=== PATIENT | male | born 1985 | race Caucasian/White ===

== ENCOUNTER 2020-06-08 11:15 | Outpatient (RCR) | payer BC | END 2020-06-08 12:00 | disposition still patient (30) | LOC: PT 11:15 | DX: S16.1XXD Strain of muscle, fascia and tendon at neck level, subsequent encounter (principal) ==

== ENCOUNTER → 2025-01-07 | Outpatient (CLI) | payer BC ==
[~2025-01-07] MED LIST: GOOD NEIGHBOR200 M1 PO; Gadoterate 20 ML VIAL IV ONE; LISINOPRIL AND1 TA1 PO; METFORMIN ER500 MG PO; POTASSIUM CHLO20 ME3 PO; TYLENOL PO
== END ==
LOC: RAD 12:55
DX: M47.812 Spondylosis without myelopathy or radiculopathy, cervical region (principal); M48.02 Spinal stenosis, cervical region; H47.10 Unspecified papilledema
CPT/HCPCS: A9575